=== PATIENT | male | born 1975 | race American Indian/Alaskan Native ===

== ENCOUNTER 2016-12-13 14:41 | Emergency (ER) | payer SELFPAY ==
[2016-12-13 15:12] VITALS: BP 155/99
--- NOTE | 2016-12-15 18:32 | ED Elopement Review ---
ED Pt Elopement review - Results review Lab results: Laboratory Tests 12/13/16 15:22 POC Glucose 106 H - Call Back decision Pt Call Back Decision: Pt to F/U with PMD
== END 2016-12-13 23:23 | disposition left against medical advice (07) ==
LOC: ED 14:41
DX: R55 Syncope and collapse (principal); R42 Dizziness and giddiness; R20.0 Anesthesia of skin; Z53.21 Procedure and treatment not carried out due to patient leaving prior to being seen by health care provider
CPT/HCPCS: 82962; 93005; 93010